=== PATIENT | male | born 1965 | race Caucasian/White ===

== ENCOUNTER → 2016-04-22 | Outpatient (CLI) | payer MEDICAID ==
[2016-04-22 10:24] LABS: CH 32.7; HCT 46.5 % (39.0-53.0); HDW 2.59; HGB 15.7 gm/dL (13.0-17.5); MCH 31.6 pg (25.0-35.0); MCHC 33.7 g/dL (31.0-37.0); MCV 93.8 fL (80.0-100.0); Mean Platelet Volume 6.4; RBC 4.96 m/uL (4.30-5.90); RDW 13.1 % (11.5-15.5); WBC 5.1 k/uL (3.8-10.6)
[2016-04-22 10:43] LABS: ALT 44 U/L (21-72); AST 30 U/L (17-59); Alkaline Phosphatase 69 U/L (38-126); Anion Gap 11 mmol/L; Blood Urea Nitrogen 19 mg/dL (9-20); Calcium 9.2 mg/dL (8.4-10.2); Carbon Dioxide 27 mmol/L (22-30); Chloride 104 mmol/L (98-107); Cholesterol 250 mg/dL (<200); Glucose 105 mg/dL (74-99); HDL Cholesterol 44 mg/dL (40-60); Non-African American GFR(MDRD) >60 (>60 ml/min/1.73 sqM); Potassium 4.2 mmol/L (3.5-5.1); Sodium 142 mmol/L (137-145); Total Protein 7.4 g/dL (6.3-8.2); Triglycerides 113 mg/dL (<150)
== END | disposition home or self-care (01) ==
LOC: LABWHC1 09:14
PROVIDERS: ATTEND Internal Medicine
DX: Z00.01 Encounter for general adult medical examination with abnormal findings (principal)
CPT/HCPCS: 36415; 80053; 80061; 84439; 84443; 85027

== ENCOUNTER → 2016-07-02 | Outpatient (CLI) | payer MEDICAID ==
[2016-07-02 09:25] LABS: CH 32.7; CHCM 34.7; HCT 46.2 % (39.0-53.0); HGB 15.4 gm/dL (13.0-17.5); MCH 31.6 pg (25.0-35.0); MCHC 33.4 g/dL (31.0-37.0); MCV 94.7 fL (80.0-100.0); Mean Platelet Volume 6.4; RBC 4.88 m/uL (4.30-5.90); RDW 13.4 % (11.5-15.5)
[2016-07-02 09:43] LABS: Anion Gap 7 mmol/L; Blood Urea Nitrogen 18 mg/dL (9-20); Carbon Dioxide 27 mmol/L (22-30); Chloride 107 mmol/L (98-107); Non-African American GFR(MDRD) >60 (>60 ml/min/1.73 sqM); Potassium 4.3 mmol/L (3.5-5.1); Sodium 141 mmol/L (137-145)
== END | disposition home or self-care (01) ==
LOC: LABPAT 08:41
PROVIDERS: ATTEND Internal Medicine Interventional Cardiology
DX: Z01.812 Encounter for preprocedural laboratory examination (principal); I25.10 Atherosclerotic heart disease of native coronary artery without angina pectoris
CPT/HCPCS: 36415; 80051; 82565; 84520; 85027

== ENCOUNTER 2016-07-08 06:07 | Day surgery (SDC) | payer MEDICAID ==
[2016-07-07 09:13] VITALS: BMI 38.0
[2016-07-08] MEDS ORDERED: ALPRAZolam 0.5 MG TAB PO PRN (06:08)
[2016-07-08] MEDS ORDERED: ALPRAZolam 0.25 MG TAB PO PRN (06:08)
[2016-07-08] MEDS ORDERED: NITROGLYCERIN SL TABS 0.4 MG TAB SUBLINGUAL PRN ×2 (06:08→09:13)
[2016-07-08] MEDS ORDERED: ATORVASTATIN 80 MG TAB PO STA (06:08)
[2016-07-08] MEDS ORDERED: SODIUM CHLORIDE 0.9% 1,000 ML in EMPTY BAG 1 BAG IV ONE (06:08)
[2016-07-08] MEDS ORDERED: ASPIRIN 325 MG TAB PO STA (06:08)
[2016-07-08] MEDS ORDERED: diphenhydrAMINE 50 MG/ML 1 ML VIAL IVP ONE (08:24)
[2016-07-08] MEDS ORDERED: MIDAZOLAM 2 MG/2 ML VIAL IV ONE (08:24)
[2016-07-08] MEDS ORDERED: NITROGLYCERIN SL TABS 0.4 MG TAB SUBLINGUAL ONE (08:25)
[2016-07-08] MEDS ORDERED: LIDOCAINE 2% INJ 20 MG/ML SQ ONE (08:26)
[2016-07-08] MEDS ORDERED: VERAPAMIL SYRINGE (5 MG/10 ML) INTRAARTER ONE (08:28)
[2016-07-08] MEDS ORDERED: BIVALIRUDIN BOLUS 250 MG/50 ML IV ONE (08:40)
[2016-07-08] MEDS ORDERED: BIVALIRUDIN 250 MG in SODIUM CHLORIDE 0.9% 50 ML IV ONE (08:41)
[2016-07-08] MEDS ORDERED: HYDROmorphone 2 MG/ML 1 ML SYRINGE IV ONE ×2 (08:42→09:10)
[2016-07-08] MEDS ORDERED: NITROGLYCERIN 1000MCG/10ML SYRINGE INTRACORON ONE (08:50)
[2016-07-08] MEDS ORDERED: IOHEXOL 350 MG/ML 125ML BOTTLE INJ ONE (09:01)
[2016-07-08] MEDS ORDERED: PRASUGREL 10 MG TAB PO ONE (09:10)
[2016-07-08] MEDS ORDERED: RX INFO: IV CONTRAST WAS GIVEN 1 EACH MISC MISCELLANE PRN (09:13)
[2016-07-08] MEDS ORDERED: ATROPINE SULFATE 0.1 MG/ML 10ML SYRINGE IV PRN (09:13)
[2016-07-08] MEDS ORDERED: ZOLPIDEM 5 MG TAB PO PRN (09:13)
[2016-07-08] MEDS ORDERED: MAG HYDROX/AL HYDROX/SIMETH 30 ML CUP PO PRN (09:13)
[2016-07-08] MEDS ORDERED: CYCLOBENZAPRINE 10 MG TAB PO PRN (09:17)
[2016-07-08] MEDS: SODIUM CHLORIDE 0.9% 1,000 ML IV SCH ×2 (17:15→20:29)
[2016-07-08] MEDS ORDERED: METOPROLOL TARTRATE 25 MG TAB PO SCH (21:00)
--- NOTE | 2016-07-08 22:34 | CC ---
DATE OF SERVICE: 07/08/2016 PROCEDURE: Left heart catheterization, coronary angiography and left ventriculography. PERFORMED BY: Dr. Ton Mckeon. CLINICAL INFORMATION: Mr. Gustavo De Leon is a 50-year-old gentleman with a known history of hypertension, hyperlipidemia with a positive stress test who was seen by me in the office. He has symptoms suggestive of angina, but on the stress test there was also a significant area of ischemia involving the inferior wall. He was therefore advised cardiac catheterization. He also had a torn biceps tendon. Risks, benefits, options, rationale were explained and patient was brought into the procedure electively. PROCEDURE NOTE: Under local anesthesia and strict aseptic precautions, a 6-Romanian introducer was placed in the right radial artery. Using an Ultimate One catheter, I performed selective coronary angiography and a pigtail catheter was used to perform LV gram after the intervention procedure. The patient had a significant circumflex lesion and he was at advised intervention of this vessel that was performed expeditiously. CARDIAC CATHETERIZATION FINDINGS: The left ventricle end-diastolic pressure was about 10 mmHg without any gradient across the aortic valve. CORONARY ANGIOGRAPHIC FINDINGS: Left main coronary artery: This is a very long, disease-free vessel that bifurcates into LAD and circumflex. Left anterior descending coronary artery: Good caliber vessel extends along the anterior wall. It gives off septal and diagonal branches, runs all the way to the apex, supplying a sizable amount of myocardium. There are minor irregularities of about 30%, but no significant disease is noted. Left posterior circumflex coronary artery: Technically a nondominant vessel, comes up at 90 degrees from the left main, gives off a small obtuse marginal, then a grooved branch and after this, there is a 95% stenosis with some haziness and beyond this, it continues as a posterolateral branch. This circumflex stenosis is significant and supplies a fair to moderate amount of myocardium and is the culprit lesion. Right coronary artery: Large and dominant disease-free vessel which distally bifurcates into PDA and PLV. No significant disease is noted in the right coronary artery. LEFT VENTRICULOGRAM: This was performed in 30-degree BROWN projection, revealed the left ventricle is of normal size with good systolic function. Ejection fraction is 60% without mitral regurgitation. FINAL IMPRESSION: This patient has a 95% stenosis mid circumflex after the origin of a groove branch and a first small obtuse marginal branch. Right coronary is dominant. Left system is free of significant disease. Filling pressures are normal. Ejection fraction is 60% without significant mitral regurgitation. RECOMMENDATIONS: I recommend intervention of the circumflex and proceeded to perform this in the same setting.
--- NOTE | 2016-07-08 22:40 | PTCA ---
DATE OF SERVICE: 07/08/2016 PROCEDURE: PTCA and stenting of mid circumflex coronary artery. PERFORMED BY: Dr. Ton Mckeon. PROCEDURE NOTE: The existing 6 Zimbabwean introducer in the right radial artery was used to perform the procedure. I used Voda 3.5 guide catheter to cannulate the left coronary artery. A BMW wire was used to cross the lesion. Pre-dilatation of the circumflex lesion was performed using a 2.5 caliber, 12 mm long Trek balloon. I then deployed at 15 mm long, 2.75 caliber Xience stent at 13 atmospheres. Patient did not have any significant chest pain or EKG changes. He had an excellent angiographic result. He received 60 mg of Effient. He received Angiomax bolus and infusion as per protocol. Excellent angiographic result without complication was noted. The sheath was then taken out and TR band applied as per protocol. The saturation of the fingers of the right hand was 94%. Patient was sent to the room in stable condition. Results were discussed with the patient and family members. Moderate conscious sedation was provided for the entire procedure for 45 minutes with Versed and Benalexisl. The patient was monitored closely. Excellent angiographic result without complication was noted and I expect the patient to be discharged in the next 24 hours.
--- NOTE | 2016-07-08 22:48 | LTR ---
July 08, 2016 RE: Gustavo De Leon Dear Dr. Almanzar: Thank you for the opportunity to participate in the care of Mr. Gustavo De Leon. I am pleased to report to you that he had an excellent angiographic result. He had a 95% mid circumflex lesion that was addressed with a drug-eluting stent. He needs to be on dual antiplatelet therapy for 1 year without interruption. Thank you for your referral and please do call for questions. With kindest regards. Sincerely yours, JOHN DOZIER MD
[2016-07-09 07:06] LABS: Basophils # (A) 0.1 k/uL (0-0.2); Basophils % (A) 1 %; CH 32.7; CHCM 34.6; Eosinophils # (A) 0.2 k/uL (0-0.7); Eosinophils % (A) 3 %; HCT 46.6 % (39.0-53.0); HDW 2.51; HGB 15.5 gm/dL (13.0-17.5); Luc # (Auto) 0.15; Luc % (Auto) 2; Lymphocytes # (A) 1.8 k/uL (1.0-4.8); Lymphocytes % (A) 23 %; MCH 31.7 pg (25.0-35.0); MCHC 33.4 g/dL (31.0-37.0); Mean Platelet Volume 6.6; Monocytes # (A) 0.5 k/uL (0-1.0); Monocytes % (A) 6 %; Neutrophils % (A) 65 %; RDW 13.3 % (11.5-15.5); WBC 7.7 k/uL (3.8-10.6); WBC (Perox) 7.49
[2016-07-09 07:22] LABS: Anion Gap 10 mmol/L; Blood Urea Nitrogen 16 mg/dL (9-20); Calcium 9.1 mg/dL (8.4-10.2); Carbon Dioxide 24 mmol/L (22-30); Chloride 108 mmol/L (98-107); Glucose 112 mg/dL (74-99); Non-African American GFR(MDRD) >60 (>60 ml/min/1.73 sqM); Potassium 4.4 mmol/L (3.5-5.1); Sodium 142 mmol/L (137-145)
[2016-07-09 08:13] VITALS: BP 140/94; PULSE 85; RESP 20; TEMP 98
[2016-07-09] MEDS ORDERED: ASPIRIN 81 MG CHEW PO SCH (09:00)
[2016-07-09] MEDS ORDERED: CLOPIDOGREL 75 MG TAB PO SCH (09:00)
[2016-07-09] MEDS ORDERED: LISINOPRIL-HCTZ 20-12.5 MG 1 EACH TAB PO SCH (09:00)
[2016-07-09] MEDS ORDERED: ATORVASTATIN 80 MG TAB PO SCH (21:00)
--- NOTE | 2016-07-13 08:53 | DS ---
DATE OF ADMISSION: 07/08/2016 DATE OF DISCHARGE: 07/09/2016 DIAGNOSES: 1. Unstable angina. 2. Hypertension. 3. Hypercholesterolemia. PROCEDURES PERFORMED: 1. Left heart catheterization, coronary angiography and left ventriculography. 2. Percutaneous transluminal coronary angioplasty and stenting of circumflex coronary artery with a drug-eluting stent. Procedure performed from right radial approach. Mr. De Leon was brought in electively for a cardiac catheterization because of his significant abnormality on stress test. Coronary angiography revealed a 95% circumflex lesion that was addressed with a drug-eluting stent with excellent result. Postprocedure course was unremarkable. This morning he is doing well. He is asymptomatic. His EKG revealed a normal sinus rhythm with old inferior AK without any acute changes. Blood pressure 120/80, pulse rate is about 70 per minute. The laboratory data are unremarkable with renal function is good. There is no JVD or carotid bruit. S1, S2 heard normally. Lungs are clear. Abdomen and lower extremity exam unchanged. Right radial cath site is clean and dry with an excellent pulse. Rest of physical examination is unchanged. Discharge instructions regarding activity, diet, medications were given. Patient will be discharged today and I will see him in the office on July 12 at 8:15 a.m.
== END 2016-07-09 10:12 | disposition home or self-care (01) ==
LOC: CATHCVL 06:07 → 6SEL 16:15 → CATHCVL 07-09 10:12
PROVIDERS: ATTEND Internal Medicine Interventional Cardiology
DX: I25.110 Atherosclerotic heart disease of native coronary artery with unstable angina pectoris (principal); I10 Essential (primary) hypertension; Z87.891 Personal history of nicotine dependence; E66.9 Obesity, unspecified; Z68.30 Body mass index [BMI] 30.0-30.9, adult; Z79.899 Other long term (current) drug therapy
CPT/HCPCS: 93458; 80048; 85025; 99152; 99153 ×2; C9600; C1769; C1887; C1725; C1874; C1894; J2001; J2250; J1170; J1200; J0583; J1644; Q9967

== ENCOUNTER → 2017-02-13 | Outpatient (CLI) | payer MEDICAID | END | disposition home or self-care (01) | LOC: LABWHC1 16:29 | PROVIDERS: ATTEND Psychiatry & Neurology Neurology | DX: G71.0 Muscular dystrophy (principal) | CPT/HCPCS: 36415; 82085; 82550 ==

== ENCOUNTER → 2017-05-10 | Outpatient (CLI) | payer MEDICAID ==
--- NOTE | 2017-05-11 11:31 | XR ---
EXAMINATION TYPE: XR foot limited RT DATE OF EXAM: 05/11/2017 COMPARISON: NONE HISTORY: Right foot pain, fifth metatarsal pain TECHNIQUE: 2 views right foot FINDINGS: No displaced fractures are evident. The mediastinum soft tissue swelling over the lateral f oot. Plantar and Achilles tendon calcaneal heel spurs are present. Joint spaces are preserved. IMPRESSION: 1. No acute osseous abnormality. 2. Mild soft tissue swelling lateral
== END | disposition home or self-care (01) ==
LOC: RADXRYALE 15:02
PROVIDERS: ATTEND Internal Medicine
DX: M79.89 Other specified soft tissue disorders (principal); M79.671 Pain in right foot

== ENCOUNTER → 2020-04-03 | Outpatient (CLI) | payer OTHER ==
[2020-04-03 22:52] LABS: HCT 44.9 % (39.6-50.0); HGB 15.4 g/dL (13.0-17.0); MCH 32.2 pg (27.0-32.0); MCHC 34.3 g/dL (32.0-37.0); MCV 93.7 fL (80.0-97.0); Mean Platelet Volume 9.9 fL (9.5-12.2); Platelet Count 259 X 10*3/uL (140-440); RBC 4.79 X 10*6/uL (4.40-5.60); RDW 12.5 % (11.5-14.5); WBC 7.08 X 10*3/uL (4.50-10.00)
[2020-04-04 02:03] LABS: Potassium 3.8 mmol/L (3.5-5.5)
== END | disposition home or self-care (01) ==
LOC: LABWHC1 16:01
PROVIDERS: ATTEND Psychiatry & Neurology Neurology
DX: G71.00 Muscular dystrophy, unspecified (principal)
CPT/HCPCS: 36415; 80051; 82085; 82550; 85027

== ENCOUNTER → 2020-08-21 | Outpatient (CLI) | payer OTHER ==
[2020-08-21 09:31] LABS: Appearance,Urine Clear (Clear); Bilirubin,Urine Negative (Negative); Blood,Urine Negative (Negative); Color,Urine Yellow; Glucose,Urine (UA) Negative (Negative); Ketones,Urine Negative (Negative); Leukocyte Esterase,Urine Negative (Negative); Nitrite,Urine Negative (Negative); PH, Urine 6.5 (5.0-8.0); Protein,Urine Negative (Negative); Specific Gravity,Urine 1.023 (1.001-1.035); Urobilinogen,Urine <2.0 mg/dL (<2.0)
[2020-08-21 11:34] LABS: Basophils # (A) 0.06 X 10*3/uL (0.00-0.10); Basophils % (A) 0.9 %; Eosinophils # (A) 0.21 X 10*3/uL (0.04-0.35); Eosinophils % (A) 3.1 %; HCT 45.4 % (39.6-50.0); HGB 15.4 g/dL (13.0-17.0); MCH 32.2 pg (27.0-32.0); MCHC 33.9 g/dL (32.0-37.0); Mean Platelet Volume 9.5 fL (9.5-12.2); Monocytes # (A) 0.84 X 10*3/uL (0.20-1.00); Monocytes % (A) 12.6 %; Neutrophils # (A) 3.71 X 10*3/uL (1.80-7.70); Neutrophils % (A) 55.7 %; Platelet Count 241 X 10*3/uL (140-440); RBC 4.78 X 10*6/uL (4.40-5.60); RDW 12.7 % (11.5-14.5); WBC 6.67 X 10*3/uL (4.50-10.00)
[2020-08-21 13:39] LABS: African American GFR (CKD) 118.2 (60.0-200.0); Albumin 4.5 g/dL (3.80-4.90); Albumin/Globulin Ratio 2.14 (1.60-3.17); Anion Gap 6.3 mmol/L (4.00-12.00); BUN/Creat Ratio 23.75 Ratio (12.00-20.00); Calcium 8.9 mg/dL (8.7-10.3); Carbon Dioxide 27.7 mmol/L (21.6-31.8); Chol/HDL Ratio 4.42; Globulin 2.1 g/dL (1.6-3.3); Potassium 4.1 mmol/L (3.5-5.5); Total Bilirubin 0.9 mg/dL (0.3-1.2); Total Protein 6.6 g/dL (6.2-8.2)
[2020-08-21 13:48] LABS: Prostate Specific Antigen 2.3 ng/mL (0.0-3.5)
[2020-08-21 19:33] LABS: Hemoglobin A1C 5.9 % (4.0-6.0)
== END | disposition home or self-care (01) ==
LOC: LABWHC1 08:20
PROVIDERS: ATTEND Physician Assistant
DX: Z00.00 Encounter for general adult medical examination without abnormal findings (principal)
CPT/HCPCS: 36415; 80053; 80061; 81003; 82306; 82607; 83036; 84153; 84443; 85025; 86141

== ENCOUNTER → 2021-03-27 | Outpatient (CLI) | payer OTHER ==
[2021-03-27 09:13] LABS: Appearance,Urine Clear (Clear); Bilirubin,Urine Negative (Negative); Blood,Urine Negative (Negative); Color,Urine Yellow; Glucose,Urine (UA) Negative (Negative); Ketones,Urine Negative (Negative); Leukocyte Esterase,Urine Negative (Negative); Nitrite,Urine Negative (Negative); Protein,Urine Negative (Negative); Specific Gravity,Urine 1.017 (1.001-1.035); Urobilinogen,Urine <2.0 mg/dL (<2.0)
[2021-03-27 12:45] LABS: Basophils # (A) 0.05 X 10*3/uL (0.00-0.10); Basophils % (A) 0.9 %; Eosinophils # (A) 0.22 X 10*3/uL (0.04-0.35); Eosinophils % (A) 4.1 %; HCT 45.3 % (39.6-50.0); HGB 15.2 g/dL (13.0-17.0); Lymphocytes # (A) 1.73 X 10*3/uL (0.90-5.00); Lymphocytes % (A) 32.6 %; MCH 31.6 pg (27.0-32.0); MCHC 33.6 g/dL (32.0-37.0); MCV 94.2 fL (80.0-97.0); Mean Platelet Volume 9.9 fL (9.5-12.2); Monocytes # (A) 0.72 X 10*3/uL (0.20-1.00); Monocytes % (A) 13.6 %; Neutrophils # (A) 2.57 X 10*3/uL (1.80-7.70); Neutrophils % (A) 48.4 %; Platelet Count 220 X 10*3/uL (140-440); RBC 4.81 X 10*6/uL (4.40-5.60); RDW 12.6 % (11.5-14.5); WBC 5.31 X 10*3/uL (4.50-10.00)
[2021-03-27 13:28] LABS: ALT 35 U/L (10-49); AST 20 U/L (14-35); African American GFR (CKD) 115.4 (60.0-200.0); Albumin 4.4 g/dL (3.8-4.9); Albumin/Globulin Ratio 1.71 (1.60-3.17); Alkaline Phosphatase 69 U/L (41-126); BUN/Creat Ratio 18.11 Ratio (12.00-20.00); Blood Urea Nitrogen 15.1 mg/dL (9.0-27.0); Calcium 8.9 mg/dL (8.7-10.3); Carbon Dioxide 21.6 mmol/L (20.0-27.5); Chloride 103 mmol/L (96-109); Globulin 2.5 g/dL (1.6-3.3); Glucose 135 mg/dL (70-110); LDL Cholesterol,Calculated 107.9 mg/dL (0.0-131.0); Non-African American GFR(CKD) 99.6 (60.0-200.0); Potassium 3.8 mmol/L (3.5-5.5); Sodium 141 mmol/L (135-145); Total Protein 6.9 g/dL (6.2-8.2)
== END | disposition home or self-care (01) ==
LOC: LABWHC1 07:58
PROVIDERS: ATTEND Physician Assistant
DX: Z00.00 Encounter for general adult medical examination without abnormal findings (principal)
CPT/HCPCS: 36415; 80053; 80061; 81003; 82306; 83036; 84153; 84403; 84439; 84443; 85025

== ENCOUNTER → 2022-04-02 | Outpatient (CLI) | payer BC ==
[2022-04-02 11:13] LABS: HCT 45.2 % (39.6-50.0); HGB 15.3 g/dL (13.0-17.0); MCH 32.3 pg (27.0-32.0); MCHC 33.8 g/dL (32.0-37.0); MCV 95.6 fL (80.0-97.0); Mean Platelet Volume 9.7 fL (9.5-12.2); NRBC Per 100 WBC 0 /100 WBCS (0.0-0.0); Platelet Count 219 X 10*3/uL (140-440); RBC 4.73 X 10*6/uL (4.40-5.60); WBC 5.65 X 10*3/uL (4.50-10.00)
[2022-04-02 11:23] LABS: Microalbumin Creatinine Ratio <30 mg/g Creat (0-30)
[2022-04-02 11:29] LABS: ALT 34 U/L (10-49); AST 19 U/L (14-35); Albumin 4.4 g/dL (3.8-4.9); Alkaline Phosphatase 71 U/L (41-126); BUN/Creat Ratio 14.67 Ratio (12.00-20.00); Blood Urea Nitrogen 13.2 mg/dL (9.0-27.0); Carbon Dioxide 28.6 mmol/L (20.0-27.5); Chloride 105 mmol/L (96-109); Chol/HDL Ratio 3.84 Ratio; Globulin 2.1 g/dL (1.6-3.3); Glucose 112 mg/dL (70-110); LDL Cholesterol,Calculated 131.7 mg/dL (0.0-131.0); Non-African American GFR(CKD) 95.8 (60.0-200.0); Potassium 4.2 mmol/L (3.5-5.5); Sodium 142 mmol/L (135-145); Total Protein 6.5 g/dL (6.2-8.2)
== END | disposition home or self-care (01) ==
LOC: LABWHC1 08:05
PROVIDERS: ATTEND Physician Assistant
DX: I10 Essential (primary) hypertension (principal); F52.21 Male erectile disorder
CPT/HCPCS: 36415; 80053; 80061; 82040; 82043; 82570; 83036; 84270; 84403; 84439; 84443; 85027

== ENCOUNTER → 2023-04-08 | Outpatient (CLI) | payer BC ==
[2023-04-08 13:30] LABS: HCT 45.7 % (39.6-50.0); HGB 15.4 g/dL (13.0-17.0); MCH 31.2 pg (27.0-32.0); MCHC 33.7 g/dL (32.0-37.0); MCV 92.7 FL (80.0-97.0); Mean Platelet Volume 9.2 FL (9.5-12.2); NRBC Per 100 WBC 0 X 10*3/uL (0.00-0.01); Platelet Count 231 X 10*3/uL (140-440); RBC 4.93 X 10*6/uL (4.40-5.60); WBC 5.31 X 10*3/uL (4.50-10.00)
[2023-04-08 13:58] LABS: ALT 31 U/L (10-49); AST 17 U/L (14-35); Albumin 4.4 g/dL (3.8-4.9); Albumin/Globulin Ratio 1.91 Ratio (1.60-3.17); Alkaline Phosphatase 68 U/L (41-126); BUN/Creat Ratio 21.44 Ratio (12.00-20.00); Blood Urea Nitrogen 19.3 mg/dL (9.0-27.0); C Reactive Protein, High Sens 0.649 mg/L (0.000-3.000); Calcium 9.5 mg/dL (8.7-10.3); Carbon Dioxide 27.8 mmol/L (21.6-31.8); Chloride 104 mmol/L (96-109); Chol/HDL Ratio 3.64 Ratio; Globulin 2.3 g/dL (1.6-3.3); Glucose 111 mg/dL (70-110); LDL Cholesterol,Calculated 116.3 mg/dL (0.0-131.0); Potassium 4.3 mmol/L (3.5-5.5); Prostate Specific Antigen 3.64 ng/mL (0.000-3.500); Sodium 143 mmol/L (135-145); T4, Free (Free Thyroxine) 1.31 ng/dL (0.80-1.80); Total Bilirubin 0.5 mg/dL (0.3-1.2); Total Protein 6.7 g/dL (6.2-8.2); VLDL Calculation 14.22 mg/dL (5.00-40.00)
[2023-04-08 16:45] LABS: Appearance,Urine Clear (Clear); Bilirubin,Urine Negative (Negative); Blood,Urine Negative (Negative); Color,Urine Yellow (Yellow); Ketones,Urine Negative (Negative); Nitrite,Urine Negative (Negative); PH, Urine 6.5; Specific Gravity,Urine 1.019 (1.001-1.030); Urobilinogen,Urine 0.2 E.U./DL
== END | disposition home or self-care (01) ==
LOC: LABWHC1 08:01
PROVIDERS: ATTEND Physician Assistant
DX: Z12.5 Encounter for screening for malignant neoplasm of prostate (principal); I10 Essential (primary) hypertension; E78.5 Hyperlipidemia, unspecified; Z92.29 Personal history of other drug therapy
CPT/HCPCS: 36415; 80053; 80061; 81003; 83036; 84153; 84439; 84443; 85027; 86141

== ENCOUNTER → 2023-06-19 | Outpatient (CLI) | payer BC ==
--- NOTE | 2023-06-20 11:59 | US ---
EXAMINATION TYPE: US axilla RT DATE OF EXAM: 06/19/2023 COMPARISON: NONE CLINICAL INDICATION: Male, 57 years old with history of R22.2 SWELLING, MASS AND LUMP; Patient states he has palpable lump right axilla that he has felt for the past 2 weeks Scanned right axilla at patient's palpable - no abnormalities seen IMPRESSION: No discrete abnormality seen.
== END | disposition home or self-care (01) ==
LOC: RADUSWWP 14:51
PROVIDERS: ATTEND Family Medicine
DX: R22.2 Localized swelling, mass and lump, trunk (principal)

== ENCOUNTER → 2024-04-20 | Outpatient (CLI) | payer BC ==
[2024-04-20 13:46] LABS: ALT 37 U/L (10-49); AST 23 U/L (14-35); Albumin 4.3 g/dL (3.8-4.9); Albumin/Globulin Ratio 2.05 Ratio (1.60-3.17); Alkaline Phosphatase 60 U/L (41-126); BUN/Creat Ratio 14.88 Ratio (12.00-20.00); Blood Urea Nitrogen 11.9 mg/dL (9.0-27.0); Calcium 8.9 mg/dL (8.7-10.3); Carbon Dioxide 25.1 mmol/L (21.6-31.8); Chloride 111 mmol/L (96-109); Chol/HDL Ratio 3.61 Ratio; Globulin 2.1 g/dL (1.6-3.3); Glucose 103 mg/dL (70-110); LDL Cholesterol,Calculated 114.3 mg/dL (0.0-131.0); Potassium 4.1 mmol/L (3.5-5.5); Sodium 149 mmol/L (135-145); T4, Free (Free Thyroxine) 1.38 ng/dL (0.80-1.80); Total Bilirubin 0.8 mg/dL (0.3-1.2); Total Protein 6.4 g/dL (6.2-8.2)
[2024-04-20 14:33] LABS: Appearance,Urine Clear (Clear); Bilirubin,Urine Negative (Negative); Blood,Urine Negative (Negative); Color,Urine Yellow (Yellow); Ketones,Urine Negative (Negative); Nitrite,Urine Negative (Negative); Urobilinogen,Urine 0.2 E.U./DL
[2024-04-20 14:38] LABS: Bacteria,Urine None Seen (None Seen)
[2024-04-20 17:53] LABS: Basophils # (A) 0.05 X 10*3/uL (0.00-0.10); Basophils % (A) 0.9 %; Eosinophils # (A) 0.07 X 10*3/uL (0.04-0.35); Eosinophils % (A) 1.3 %; HCT 46.8 % (39.6-50.0); HGB 15.7 g/dL (13.0-17.0); Lymphocytes % (A) 30.3 %; MCH 31.8 pg (27.0-32.0); MCHC 33.5 g/dL (32.0-37.0); MCV 94.7 FL (80.0-97.0); Mean Platelet Volume 9.2 FL (9.5-12.2); Monocytes # (A) 0.64 X 10*3/uL (0.20-1.00); Monocytes % (A) 12.1 %; NRBC Per 100 WBC 0 X 10*3/uL (0.00-0.01); Neutrophils # (A) 2.91 X 10*3/uL (1.80-7.70); Neutrophils % (A) 55.2 %; Platelet Count 253 X 10*3/uL (140-440); RBC 4.94 X 10*6/uL (4.40-5.60); RDW 13.3 % (11.5-14.5); WBC 5.28 X 10*3/uL (4.50-10.00)
== END | disposition home or self-care (01) ==
LOC: LABWHC1 07:34
PROVIDERS: ATTEND Physician Assistant
DX: Z00.00 Encounter for general adult medical examination without abnormal findings (principal)
CPT/HCPCS: 36415; 80053; 80061; 81001; 82306; 83036; 84153; 84439; 84443; 85025